=== PATIENT | male | born 1950 | race Caucasian/White ===

== ENCOUNTER 2021-03-01 19:05 | Inpatient (IN) | payer OTHER ==
[~2021-03-01] VITALS: Ht 180.3 cm; Wt 92.5 kg
[2021-03-01] MEDS ORDERED: FAMOTIDINE 20MG/2ML VIAL IV STA (19:39)
[2021-03-01] MEDS ORDERED: SODIUM CHLORIDE 0.9% 1,000 ML IV ONE ×2 (19:45→23:15)
[2021-03-01 20:40] LABS: BASOPHILS % 0.3 % (0.0-2.0); EOSINOPHILS % 0.3 % (0.0-5.0); HEMOGLOBIN. 9.4 g/dL (14.0-18.0); LYMPHOCYTES % 9.1 % (20.0-50.0); MEAN CORPUSCULAR HEMOGLOBIN 32.2 pg (28.0-32.0); MEAN CORPUSCULAR VOLUME 95.9 fL (80.0-94.0); MEAN PLATELET VOLUME 7.5 fl (7.4-10.4); MONOCYTES % 6.5 % (2.0-8.0); NEUTROPHILS % 83.8 % (40.0-76.0); PLATELET 293 x1000/uL (130-400); RED BLOOD CELL COUNT 2.92 mill/uL (4.7-6.1); RED CELL DISTRIBUTION WIDTH 12.8 % (11.6-14.6)
[2021-03-01 20:44] LABS: CHLORIDE 106 mEq/L (98-107)
[2021-03-01] MEDS ORDERED: OCTREOTIDE 1,000 MCG in SODIUM CHLORIDE 0.9% 100 ML IV NR (23:30)
[2021-03-01] MEDS ORDERED: PANTOPRAZOLE SODIUM 40 MG/VIAL IV NR (23:30)
[2021-03-01] MEDS ORDERED: OCTREOTIDE ACETATE 50 MCG/ML 1ML IV NR (23:30)
[2021-03-02] MEDS: DEXT 5%/0.45% NACL 1000ML 1,000 ML IV SCH ×2 (06:15→21:18)
[2021-03-02] MEDS ORDERED: ONDANSETRON HCL 4MG/2ML INJ IV PRN (06:15)
[2021-03-02] MEDS: PANTOPRAZOLE SODIUM 40 MG/VIAL IV SCH ×3 (07:07→21:06)
[2021-03-02 12:00] VITALS: BP 125/72
[2021-03-02 13:30] VITALS: BP 125/72
[2021-03-02 16:00] VITALS: BP 126/64
[2021-03-02 20:00] VITALS: BP 108/59
[2021-03-02 21:30] LABS: BASOPHILS % 0.2 % (0.0-2.0); EOSINOPHILS % 0.9 % (0.0-5.0); HEMATOCRIT. 22.5 % (42.0-52.0); HEMOGLOBIN. 7.8 g/dL (14.0-18.0); LYMPHOCYTES % 9.5 % (20.0-50.0); MEAN CORPUSCULAR HEMOGLOBIN 33.6 pg (28.0-32.0); MEAN CORPUSCULAR VOLUME 96.4 fL (80.0-94.0); MEAN PLATELET VOLUME 7.5 fl (7.4-10.4); MONOCYTES % 4.1 % (2.0-8.0); NEUTROPHILS % 85.3 % (40.0-76.0); PLATELET 245 x1000/uL (130-400); RED BLOOD CELL COUNT 2.33 mill/uL (4.7-6.1); RED CELL DISTRIBUTION WIDTH 13.3 % (11.6-14.6)
[2021-03-02 21:43] LABS: CHLORIDE 109 mEq/L (98-107)
[2021-03-03] VITALS (7 sets, daily range): BP systolic 91–119; BP diastolic 42–58
[2021-03-03 08:45] LABS: BASOPHILS % 0.5 % (0.0-2.0); LYMPHOCYTES % 14.6 % (20.0-50.0); MEAN PLATELET VOLUME 7.2 fl (7.4-10.4); MONOCYTES % 6.3 % (2.0-8.0); NEUTROPHILS % 76.6 % (40.0-76.0); PLATELET 241 x1000/uL (130-400); RED BLOOD CELL COUNT 2.17 mill/uL (4.7-6.1); RED CELL DISTRIBUTION WIDTH 13.2 % (11.6-14.6)
[2021-03-03 08:55] LABS: CHLORIDE 111 mEq/L (98-107)
[2021-03-03 09:00] LABS: PHOSPHORUS 2.1 mg/dL (2.5-4.9)
[2021-03-03 09:01] LABS: TOTAL IRON BINDING CAPACITY 270 ug/dL (250-450)
[2021-03-03 09:04] LABS: INR 1.1; PROTHROMBIN TIME 11.4 sec (9.6-11.0)
[2021-03-03 09:08] LABS: HEMOGLOBIN. 7.2 g/dL (14.0-18.0); MEAN CORPUSCULAR VOLUME 96.3 fL (80.0-94.0)
[2021-03-03 09:09] LABS: HEMATOCRIT. 20.9 % (42.0-52.0)
[2021-03-03] MEDS: DEXT 5%/0.45% NACL 1000ML 1,000 ML IV SCH ×2 (09:09→23:15)
[2021-03-03] MEDS: PANTOPRAZOLE SODIUM 40 MG/VIAL IV SCH ×2 (09:09→20:12)
[2021-03-03 13:12] LABS: FOLIC ACID (FOLATE) SERUM 18.5 ng/mL (>5.38)
[2021-03-03] MEDS ORDERED: OCTREOTIDE 1,000 MCG in SODIUM CHLORIDE 0.9% 98 ML IV NR (18:00)
[2021-03-03] MEDS ORDERED: OCTREOTIDE ACETATE 50 MCG/ML 1ML IV NR (18:00)
[2021-03-03] MEDS: ACETAMINOPHEN 325MG TABLET PO PRN (20:30)
[2021-03-04] VITALS (10 sets, daily range): BP systolic 90–132; BP diastolic 42–72
[2021-03-04 02:17] LABS: HEPATITIS B SURFACE ANTIGEN NEGATIVE
[2021-03-04 07:32] LABS: CHLORIDE 107 mEq/L (98-107)
[2021-03-04 07:33] LABS: BASOPHILS % 0.5 % (0.0-2.0); EOSINOPHILS % 2.5 % (0.0-5.0); HEMATOCRIT. 21.4 % (42.0-52.0); HEMOGLOBIN. 7.3 g/dL (14.0-18.0); LYMPHOCYTES % 15.1 % (20.0-50.0); MEAN CORPUSCULAR VOLUME 96.4 fL (80.0-94.0); MEAN PLATELET VOLUME 7.2 fl (7.4-10.4); MONOCYTES % 7.3 % (2.0-8.0); NEUTROPHILS % 74.6 % (40.0-76.0); PLATELET 268 x1000/uL (130-400); RED BLOOD CELL COUNT 2.22 mill/uL (4.7-6.1); RED CELL DISTRIBUTION WIDTH 13.2 % (11.6-14.6)
[2021-03-04 07:38] LABS: INR 1.1; PROTHROMBIN TIME 11.4 sec (9.6-11.0)
[2021-03-04] MEDS: PANTOPRAZOLE SODIUM 40 MG/VIAL IV SCH ×2 (08:38→20:40)
[2021-03-04] MEDS: DEXT 5%/0.45% NACL 1000ML 1,000 ML IV SCH (12:45)
[2021-03-04] MEDS: ACETAMINOPHEN 325MG TABLET PO PRN (20:40)
[2021-03-05] VITALS: BP 96/64
[2021-03-05] MEDS: DEXT 5%/0.45% NACL 1000ML 1,000 ML IV SCH ×2 (00:11→13:44)
[2021-03-05 04:00] VITALS: BP 93/42
[2021-03-05 07:55] LABS: CHLORIDE 110 mEq/L (98-107)
[2021-03-05 07:59] LABS: BASOPHILS % 0.6 % (0.0-2.0); EOSINOPHILS % 2.3 % (0.0-5.0); HEMATOCRIT. 25.9 % (42.0-52.0); LYMPHOCYTES % 13.5 % (20.0-50.0); MEAN CORPUSCULAR HEMOGLOBIN 32.6 pg (28.0-32.0); MEAN CORPUSCULAR VOLUME 93.9 fL (80.0-94.0); MEAN PLATELET VOLUME 7.3 fl (7.4-10.4); MONOCYTES % 7.9 % (2.0-8.0); NEUTROPHILS % 75.7 % (40.0-76.0); PLATELET 255 x1000/uL (130-400); RED BLOOD CELL COUNT 2.76 mill/uL (4.7-6.1); RED CELL DISTRIBUTION WIDTH 15.4 % (11.6-14.6)
[2021-03-05 08:12] LABS: PROTHROMBIN TIME 11.2 sec (9.6-11.0)
[2021-03-05 08:26] VITALS: BP 108/61
[2021-03-05] MEDS: PANTOPRAZOLE SODIUM 40 MG/VIAL IV SCH ×2 (08:49→20:44)
[2021-03-05 11:31] VITALS: BP 140/74
[2021-03-05 15:34] VITALS: BP 120/64
[2021-03-05 16:36] LABS: INR 1.1; PROTHROMBIN TIME 11.3 sec (9.6-11.0)
[2021-03-05 20:00] VITALS: BP 129/83
[2021-03-05] MEDS: ACETAMINOPHEN 325MG TABLET PO PRN (20:49)
[2021-03-05] MEDS: DOCUSATE SODIUM 100MG CAPSULE PO SCH (22:56)
[2021-03-06] VITALS: BP 130/86
[2021-03-06] MEDS: DEXT 5%/0.45% NACL 1000ML 1,000 ML IV SCH ×2 (03:07→16:55)
[2021-03-06 04:00] VITALS: BP 95/55
[2021-03-06 06:53] LABS: BASOPHILS % 0.6 % (0.0-2.0); EOSINOPHILS % 2.5 % (0.0-5.0); HEMATOCRIT. 25.3 % (42.0-52.0); HEMOGLOBIN. 8.9 g/dL (14.0-18.0); LYMPHOCYTES % 16.4 % (20.0-50.0); MEAN CORPUSCULAR HEMOGLOBIN 33.5 pg (28.0-32.0); MEAN CORPUSCULAR VOLUME 94.8 fL (80.0-94.0); MEAN PLATELET VOLUME 7.1 fl (7.4-10.4); NEUTROPHILS % 72.5 % (40.0-76.0); PLATELET 265 x1000/uL (130-400); PROTHROMBIN TIME 11.2 sec (9.6-11.0); RED BLOOD CELL COUNT 2.67 mill/uL (4.7-6.1); RED CELL DISTRIBUTION WIDTH 14.6 % (11.6-14.6)
[2021-03-06 07:35] LABS: CHLORIDE 110 mEq/L (98-107)
[2021-03-06 08:00] VITALS: BP 109/68
[2021-03-06] MEDS: DOCUSATE SODIUM 100MG CAPSULE PO SCH ×2 (08:24→17:00)
[2021-03-06] MEDS: PANTOPRAZOLE SODIUM 40 MG/VIAL IV SCH ×2 (08:27→21:07)
[2021-03-06 12:00] VITALS: BP 113/78
[2021-03-06 16:00] VITALS: BP 131/67
[2021-03-06] MEDS ORDERED: SIMETHICONE 40 MG/0.6 ML 15ML ONE (16:16)
[2021-03-06] MEDS ORDERED: LIDOCAINE HCL 1% 20ML VIAL (Pyxis) INJ ONE (16:16)
[2021-03-06] MEDS ORDERED: PROPOFOL 200MG/20ML VIAL IV ONE ×2 (16:16→16:25)
[2021-03-06] MEDS: SUCRALFATE 1 G/10 ML UDC PO SCH ×2 (17:31→21:07)
[2021-03-06 20:00] VITALS: BP 110/56
[2021-03-06] MEDS: ACETAMINOPHEN 325MG TABLET PO PRN (21:07)
[2021-03-07] VITALS: BP 100/66
[2021-03-07 04:00] VITALS: BP 110/66
[2021-03-07] MEDS: SUCRALFATE 1 G/10 ML UDC PO SCH ×2 (06:13→11:24)
[2021-03-07 08:00] VITALS: BP 111/60
[2021-03-07] MEDS: PANTOPRAZOLE SODIUM 40 MG/VIAL IV SCH (08:33)
[2021-03-07] MEDS: DOCUSATE SODIUM 100MG CAPSULE PO SCH (08:33)
[2021-03-07 12:00] VITALS: BP 109/56
[2021-03-07 16:00] VITALS: BP 130/60
[2021-03-07 16:10] VITALS: BP 130/60
== END 2021-03-07 18:00 | disposition home or self-care (01) | DRG 368 ==
LOC: ER 19:05 → MICUSO 03-02 02:38 → 8WST 03-02 15:33
PROVIDERS: ADMIT Hospitalist; ATTEND Hospitalist
PROC: 30233N1 Transfusion of Nonautologous Red Blood Cells into Peripheral Vein, Percutaneous Approach (ICD-10-PCS; 2021-03-03)
PROC: 0DB78ZX Excision of Stomach, Pylorus, Via Natural or Artificial Opening Endoscopic, Diagnostic (ICD-10-PCS; principal; 2021-03-06)
DX: K20.91 Esophagitis, unspecified with bleeding (principal); K29.01 Acute gastritis with bleeding; K27.4 Chronic or unspecified peptic ulcer, site unspecified, with hemorrhage; D62 Acute posthemorrhagic anemia; E44.1 Mild protein-calorie malnutrition; K22.70 Barrett's esophagus without dysplasia; F10.10 Alcohol abuse, uncomplicated; Z20.822 Contact with and (suspected) exposure to COVID-19; D63.8 Anemia in other chronic diseases classified elsewhere; K76.0 Fatty (change of) liver, not elsewhere classified; K44.9 Diaphragmatic hernia without obstruction or gangrene; Y90.9 Presence of alcohol in blood, level not specified; Z68.25 Body mass index [BMI] 25.0-25.9, adult
CPT/HCPCS: 36415; 76700; 80048; 80053; 82607; 82728; 82746; 83540; 83550; 83735; 84100; 85025; 86705; 86709; 86803; 86850; 86900; 86920; 87340; 87426; 88305; 88312; 88313; 93005; 93970; 99291; C9113; J2354; J2704; J3490; J7030; J7040; J7042; J7050; P9016